=== PATIENT | male | born 1995 | race Caucasian/White ===

== ENCOUNTER 2018-05-10 19:25 | Emergency (ER) | payer BC, SELFPAY | END 2018-05-10 20:19 | disposition home or self-care (01) | LOC: ERS 19:25 | DX: J18.9 Pneumonia, unspecified organism (principal); M41.9 Scoliosis, unspecified | CPT/HCPCS: 99283 ==

== ENCOUNTER 2020-11-08 08:44 | Emergency (ER) | payer OTHER, SELFPAY ==
[2020-11-08] MEDS ORDERED: Ipratropium Bromide 2.5 ml Neb ONE ×2 (09:03→10:07)
[2020-11-08] MEDS ORDERED: Albuterol Sulfate 2.5 mg/3 ml Neb ONE ×2 (09:03→10:07)
[2020-11-08] MEDS ORDERED: methylPREDNISolone Sod Succ/PF 125 MG/2 ML VIAL ONE (09:05)
[2020-11-08] MEDS ORDERED: Magnesium 2 GM/50 ML BAG (IN WATER) ONE (09:05)
[2020-11-08 09:09] LABS: #Basophils 0.1 thou/uL (0.0-0.2); #Eosinphils 2.3 thou/uL (0.0-0.7); #Lymphocytes 1.7 thou/uL (1.20-3.40); #Neutrophils 7.8 thou/uL (1.40-6.50); %Basophils 0.5 % (0.0-1.0); %Eosinophils 17.9 % (0.0-10.0); %Monocytes 7.8 % (0.0-10.0); %Neutrophils 60.7 % (42.0-75.0); Hemoglobin 16.5 g/dL (14.0-18.0); Mean Corpuscular HGB CONC 33.7 g/dL (32.0-36.0); Mean Corpuscular Hemoglobin 31.9 pg (27.0-31.0); Mean Corpuscular Volume 94.6 fL (78.0-98.0); Mean Platelet Volume 6.5 fL (7.4-10.4); Platelet Count 305 thou/uL (130-400); RBC Distribution Width 10.5 % (11.5-14.5); Red Blood Cell (RBC) Count 5.18 mill/uL (4.70-6.10); White Blood Cell (WBC) Count 12.9 thou/uL (4.8-10.8)
[2020-11-08 09:29] LABS: ALT (SGPT) 15 U/L (8-55); AST (SGOT) 15 U/L (5-34); Albumin 4.8 g/dL (3.5-5.0); Alkaline Phosphatase 62 U/L (40-110); Anion Gap 14 mmol/L (10-20); BUN (Urea Nitrogen) 10 mg/dL (8.9-20.6); Bilirubin, Total 1.6 mg/dL (0.2-1.2); Calc. Creatinine Clearance 0 mL/min (70-130); Calcium 9.7 mg/dL (7.8-10.44); Carbon Dioxide 24 mmol/L (22-29); Chloride 106 mmol/L (98-107); Glucose 91 mg/dL (70-105); Potassium 3.9 mmol/L (3.5-5.1); Protein, Total 7.8 g/dL (6.0-8.3); Sodium 140 mmol/L (136-145)
[2020-11-08] MEDS ORDERED: cefTRIAXone\\ROCEPHIN 2 GM VIAL ONE (09:44)
[2020-11-08] MEDS ORDERED: Azithromycin 500 MG VIAL ONE (10:25)
[2020-11-08 11:26] LABS: SARS-CoV-2 NAA Rapid Test Not Detected (NotDetected)
[2020-11-08] MEDS ORDERED: Albuterol 200 PUFF (6.7GM INHALER) ONE (12:08)
== END 2020-11-08 12:20 | disposition home or self-care (01) ==
LOC: ERS 08:44
DX: J45.901 Unspecified asthma with (acute) exacerbation (principal); F17.290 Nicotine dependence, other tobacco product, uncomplicated; Z79.899 Other long term (current) drug therapy; Z20.822 Contact with and (suspected) exposure to COVID-19
CPT/HCPCS: 0240U; 36415; 71045; 80053; 83605; 83880; 84484; 85025; 85379; 87040; 94644; 96365; 96367; 96375; J0456; J0696; J2930; J3475; J7611

== ENCOUNTER 2023-03-10 03:28 | Emergency (ER) | payer SELFPAY ==
[2023-03-10] MEDS ORDERED: Ketorolac Tromethamine 30 MG/ML VIAL ONE (03:46)
[2023-03-10] MEDS ORDERED: Ipratropium/Albuterol 3 ML NEB ONE (03:49)
== END 2023-03-10 05:00 | disposition home or self-care (01) ==
LOC: ERS 03:28
DX: J45.909 Unspecified asthma, uncomplicated (principal); F17.210 Nicotine dependence, cigarettes, uncomplicated
CPT/HCPCS: 71045; 93005; 96372; J1885; J7620

== ENCOUNTER 2025-04-04 19:32 | Emergency (ER) | payer SELFPAY | END 2025-04-04 21:10 | disposition home or self-care (01) | LOC: ERS 19:32 | DX: S60.222A Contusion of left hand, initial encounter (principal); S60.221A Contusion of right hand, initial encounter; F17.210 Nicotine dependence, cigarettes, uncomplicated; F17.290 Nicotine dependence, other tobacco product, uncomplicated; W22.8XXA Striking against or struck by other objects, initial encounter | CPT/HCPCS: 99283 ==

== ENCOUNTER 2025-05-19 16:01 | Emergency (ER) | payer SELFPAY | END 2025-05-19 18:32 | disposition home or self-care (01) | LOC: ERS 16:01 | DX: J20.9 Acute bronchitis, unspecified (principal); F17.210 Nicotine dependence, cigarettes, uncomplicated; F17.290 Nicotine dependence, other tobacco product, uncomplicated | CPT/HCPCS: 71046; 87428 ==